=== PATIENT | male | born 1930 | race Caucasian/White ===

== ENCOUNTER → 2019-12-26 | Outpatient (CLI) | payer MEDICARE, OTHER ==
[~2019-12-26] MED LIST: AMIO200T61 PO; APIX2.5T PO; ASPI-611 PO; CEFD300C3 PO; FEBU40TA PO; FINA5TAB12 PO; FLO0.4C PO; FURO40TA4 PO; METO50TA16 PO; PRAV40TA65 PO
== END | disposition home or self-care (01) ==
LOC: LAB SPEC 11:55
DX: N39.0 Urinary tract infection, site not specified (principal)
CPT/HCPCS: 87088